=== PATIENT | female | born 1950 | race Caucasian/White ===

== ENCOUNTER → 2020-03-28 | Outpatient (CLI) | payer MEDICARE, OTHER ==
[~2020-03-28] MED LIST: ALDACTONE 25MG25 MG PO; ARNUITY ELLIP100 MCG INH; COZAAR25 MG PO; DILTIAZEM 24HR120 M1 PO; GLUCOPHAGE XR500 MG PO; HEARTBURN RELIE20 MG PO; HUMULIN R100 UNIT/1 SC; HYDRALAZINE HCL50 MG PO; HYGROTON TAB 2525 MG PO; LEVEMIR100 UNIT/1 SC; LISINOPRIL10 MG PO; LOSARTAN POTAS100 MG PO; MEDROL4 MG PO; NEURONTIN100 MG PO; NYSTATIN100000 UNI PO; OZEMPIC0.25 MG/0. SQ; PRAVACHOL20 MG PO; PROTONIX40 MG PO; PROZAC40 MG PO; QVAR8.7 G1 INH; SINGULAIR10 MG PO; VENTOLIN HFA 66.7 GM INH; VIBRAMYCIN100 MG PO; VICTOZA 1818 MG/3 ML SC; VITAMIN D31250 MCG PO; ZYLOPRIM 100 M100 MG PO
== END ==
LOC: KOH-I 15:15
DX: R06.00 Dyspnea, unspecified (principal)
CPT/HCPCS: 71046

== ENCOUNTER → 2020-06-06 | Outpatient (CLI) | payer MEDICARE, OTHER | LOC: NM 05-01 09:00 → ECHO 05-01 12:00 → NM 05-01 13:00 → HEART 5 08:18 | DX: R06.02 Shortness of breath (principal); I20.8 Other forms of angina pectoris; I51.7 Cardiomegaly | CPT/HCPCS: 78452; A9502; J2785 ==

== ENCOUNTER → 2020-06-19 | Outpatient (CLI) | payer MEDICARE, OTHER | LOC: CATH 06-18 08:30 → EDSTATUS 08:00 → CATH 08:00 | DX: I08.3 Combined rheumatic disorders of mitral, aortic and tricuspid valves (principal); M19.90 Unspecified osteoarthritis, unspecified site; M10.9 Gout, unspecified; I10 Essential (primary) hypertension; E78.00 Pure hypercholesterolemia, unspecified; G47.30 Sleep apnea, unspecified; E11.9 Type 2 diabetes mellitus without complications; Z91.041 Radiographic dye allergy status; Z79.84 Long term (current) use of oral hypoglycemic drugs; Z79.899 Other long term (current) drug therapy; Z20.822 Contact with and (suspected) exposure to COVID-19 | CPT/HCPCS: 82962; 93005; 93312; 93320; J0461; J1200; J2250; J2310; J3010; J7040; U0002 ==

== ENCOUNTER → 2020-07-03 | Outpatient (CLI) | payer MEDICARE, OTHER | LOC: HEART 5 08:30 | DX: R00.2 Palpitations (principal) ==

== ENCOUNTER → 2021-05-20 | Outpatient (CLI) | payer MEDICARE, OTHER | LOC: KOH-I 10:44 | DX: R06.02 Shortness of breath (principal) | CPT/HCPCS: 71046 ==